=== PATIENT | male | born 1985 | race Caucasian/White ===

== ENCOUNTER 2019-04-21 16:30 | Emergency (ER) | payer BC ==
[~2019-04-21] VITALS: Ht 177.8 cm; Wt 110.2 kg
--- NOTE | 2019-04-21 16:46 | NUR ---
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 PT AAOX4, VSS. RR EVEN & UNLABORED. DENIES CP, SOB, DIZZINESS, WEAKNESS @ THIS TIME. AWAITING EVAL BY VELVET/PA. PLACED ON BULK DELIVERY DRIVER, SR, NO ECTOPY NOTED @ THIS TIME. WILL CONT TO MONITOR.
[2019-04-21 17:27] LABS: BASOPHILS % (AUTO) 0.7 % (0.0-2.0); EOSINOPHILS % (AUTO) 0.4 % (0.0-6.0); HEMATOCRIT 44 % (39-51); HEMOGLOBIN 15.1 g/dL (13.5-17.5); LYMPHOCYTES # (AUTO) 1.2 /CMM (0.8-4.8); LYMPHOCYTES % (AUTO) 17.3 % (20.0-44.0); MEAN CORPUSCULAR HGB CONC 35 g/dl (31.0-36.0); MEAN CORPUSCULAR VOLUME 87 fL (80-96); MONOCYTES # (AUTO) 0.4 /CMM (0.1-1.30); NEUTROPHILS # (AUTO) 5.4 /CMM (1.8-8.9); NEUTROPHILS % (AUTO) 75.6 % (43.0-81.0); PLATELET COUNT (AUTO) 238 /CMM (150-450); RED BLOOD CELL COUNT(AUTO) 5.03 MIL/uL (4.5-6.0); WHITE BLOOD COUNT (AUTO) 7.2 K/uL (4.3-11.0)
[2019-04-21] MEDS ORDERED: LORAZEPAM INJ 2 MG/ML VIAL ONE (17:27)
[2019-04-21] MEDS ORDERED: IV NS 0.9% 1,000 ML BAG IV ONE (17:30)
[2019-04-21] MEDS ORDERED: LORAZEPAM INJ 2 MG/ML VIAL IV ONE (17:30)
--- NOTE | 2019-04-21 17:30 | NUR ---
MEDICATED ORDERED, PT HAMIDA WELL. WILL CONT TO MONITOR.
[2019-04-21 17:41] LABS: CALCIUM, SERUM 9.4 mg/dL (8.5-10.1); CREATININE 1.1 mg/dL (0.6-1.3); POTASSIUM 3.2 mmol/L (3.5-5.1)
[2019-04-21 18:08] LABS: THYROID STIMULATING HORMONE 2.038 uIU/mL (0.358-3.74)
--- NOTE | 2019-04-21 19:48 | NUR ---
Patient discharged to home in stable condition. Written and verbal after care instructions given. Patient verbalizes understanding of instruction.IV removed. Catheter intact and site benign. Pressure and 4x4 applied to site. No bleeding noted.
[2019-04-21 19:49] VITALS: BP 129/74
== END 2019-04-21 19:49 | disposition home or self-care (01) ==
LOC: ER 16:36
DX: R00.0 Tachycardia, unspecified (principal); R00.2 Palpitations; Z60.2 Problems related to living alone
CPT/HCPCS: 36415; 71045; 80048; 84439; 84443; 85025; 93005; 96374; 99284; J2060; J7030